=== PATIENT | male | born 2000 | race African-American/Black ===

== ENCOUNTER 2022-12-02 21:05 | Emergency (ER) | payer MEDICAID ==
[~2022-12-02] VITALS: Ht 182.9 cm; Wt 62.0 kg
[2022-12-02 21:12] VITALS: BP 115/57
[2022-12-02] MEDS ORDERED: NAPR-679 MT (22:28)
== END 2022-12-02 22:40 | disposition home or self-care (01) ==
LOC: ER 21:23
DX: M70.22 Olecranon bursitis, left elbow (principal); Y93.67 Activity, basketball; Y92.89 Other specified places as the place of occurrence of the external cause; Y99.8 Other external cause status
CPT/HCPCS: 99282